=== PATIENT | male | born 1980 | race African-American/Black ===

== ENCOUNTER 2017-06-12 23:05 | Inpatient (IN) | payer MEDICAID ==
[~2017-06-12] VITALS: Ht 195.6 cm; Wt 112.6 kg
[~2017-06-12 23:05] MED LIST: CYCL-36 PO; DICL75 PO
[2017-06-12 23:12] VITALS: BP 115/187; PULSE 95; RESP 20; TEMP 98.6; O2SAT 97
[2017-06-12 23:33] VITALS: BP_DIAS 87
--- NOTE | 2017-06-12 23:35 | PD ---
HPI Chief Complaint: General Weakness Time Seen by Provider: 23:35 Travel History International Travel<30 days: No Contact w/Intl Traveler<30days: No Traveled to known affect area: No History of Present Illness HPI 36-year-old male came to the emergency room with history of polydipsia and polyuria that has been going on for past 3-4 days. Patient tells me that 2 days ago he was at an urgent care for some abdominal pain where he was told that he had prostatitis and was discharged home on doxycycline. He told me that his urine was tested. In triage patient had a blood glucose point of care testing done and the glucometer read high. Patient does not have any history of diabetes. He is not on any medications besides the doxycycline that he has been taking for past 2 days. No history of nausea vomiting. No history of abdominal pain currently. Vital signs are relatively stable. He told me today he had some blurred vision that bothered him. He's been getting on and off dizziness as well. [facility] Past Medical History Narrative Medical List of his past medical, surgical, social and family history is reviewed from the nursing note. Medical History: Denies Significant Hx Diminished Hearing: No Immunizations Current: No Tetanus Vaccination: < 5 Years Influenza Vaccination: No Social History Alcohol Use: Yes (1-2 liquor drinks daily) Tobacco Use: Yes (Hooka occasionally) Substance Use: No Allergies-Medications (Allergen,Severity, Reaction): Coded Allergies: No Known Allergies (Unverified Adverse Reaction, Unknown, 06/12/17) Comments No known drug allergies. Reported Meds & Prescriptions Reported Meds & Active Scripts Active Diclofenac Sodium 75 Mg Tab 75 Mg PO BID PRN Flexeril (Cyclobenzaprine HCl) 10 Mg Tab 10 Mg PO Q8 PRN Narrative Medication List of his home medications reviewed from the nursing note. Review of Systems Except as stated in HPI: all other systems reviewed are Neg Endocrine: Positive: Polyuria, Polydipsia Physical Exam Narrative GENERAL: Awake, alert, no obvious distress SKIN: Focused skin assessment warm/dry. HEAD: Atraumatic. Normocephalic. EYES: Pupils equal and round. No scleral icterus. No injection or drainage. ENT: No nasal bleeding or discharge. Dry mucous membrane. NECK: Trachea midline. No JVD. CARDIOVASCULAR: Regular rate and rhythm. No murmur appreciated. RESPIRATORY: No accessory muscle use. Clear to auscultation. Breath sounds equal bilaterally. GASTROINTESTINAL: Abdomen soft, non-tender, nondistended. Hepatic and splenic margins not palpable. MUSCULOSKELETAL: No obvious deformities. No clubbing. No cyanosis. No edema. NEUROLOGICAL: Awake and alert. No obvious cranial nerve deficits. Motor grossly within normal limits. Normal speech. PSYCHIATRIC: Appropriate mood and affect; insight and judgment normal. Data Data Last Documented VS Vital Signs Date Time Temp Pulse Resp B/P (MAP) Pulse Ox O2 Delivery O2 Flow Rate FiO2 06/12/17 23:45 97 Room Air 06/12/17 23:12 98.6 95 20 Orders Orders Complete Blood Count With Diff (06/12/17:40) Comprehensive Metabolic Panel (06/12/17:) Beta Hydroxybutyrate (Acetone) (06/12/17:40) Urinalysis - C+S If Indicated (06/12/17:40) Blood Gas Venous (Vbg) (06/12/17:40) Blood Glucose (06/12/17:40) Blood Glucose (06/13/17 00:40) Ecg Monitoring (06/12/17:40) Iv Access Insert/Monitor (06/12/17:40) Oximetry (06/12/17:40) NPO (06/12/17:40) Sodium Chlor 0.9% 1000 Ml Inj (Ns 1000 M (06/12/17 23:40) Sodium Chloride 0.9% Flush (Ns Flush) (06/12/17 23:45) Insulin Human Regular Inj (Novolin R Inj (06/13/17 00:45) Drug Screen, Random Urine (06/13/17 00:31) Sodium Chlor 0.9% 1000 Ml Inj (Ns 1000 M (06/13/17 01:04) Labs Laboratory Tests Test 06/12/17 23:40 06/12/17 23:45 06/13/17 00:00 Urine Color STRAW Urine Turbidity CLEAR Urine pH 6.0 Urine Specific [place] 1.029 Urine Protein NEG mg/dL Urine Glucose (UA) 1000 OR GREATER mg/dL Urine Ketones NEG mg/dL Urine Occult Blood NEG Urine Nitrite NEG Urine Bilirubin NEG Urine Leukocyte Esterase NEG Urine RBC 0-3 /hpf Urine WBC 0-2 /hpf Urine Squamous Epithelial Cells 0-5 /hpf Microscopic Urinalysis Comment CULT NOT INDICATED White Blood Count 7.7 TH/MM3 Red Blood Count 5.41 MIL/MM3 Hemoglobin 16.8 GM/DL Hematocrit 49.2 % Mean Corpuscular Volume 90.8 FL Mean Corpuscular Hemoglobin 31.0 PG Mean Corpuscular Hemoglobin Concent 34.1 % Red Cell Distribution Width 12.1 % Platelet Count 267 TH/MM3 Mean Platelet Volume 8.9 FL Neutrophils (%) (Auto) 61.3 % Lymphocytes (%) (Auto) 27.8 % Monocytes (%) (Auto) 7.4 % Eosinophils (%) (Auto) 1.9 % Basophils (%) (Auto) 1.6 % Neutrophils # (Auto) 4.8 TH/MM3 Lymphocytes # (Auto) 2.1 TH/MM3 Monocytes # (Auto) 0.6 TH/MM3 Eosinophils # (Auto) 0.1 TH/MM3 Basophils # (Auto) 0.1 TH/MM3 CBC Comment DIFF FINAL Differential Comment Blood Gas Puncture Site IV Blood Gas Patient Temperature 98.6 Venous Blood pH 7.38 Venous Blood Partial Pressure CO2 47 mmHg Venous Blood Partial Pressure O2 55 mmHg Venous Blood HCO3 27 mmol/L Venous Blood Oxygen Saturation 85 % Venous Blood Oxygen Content 20.0 Vol % Venous Blood Base Excess 2.4 mmol/L Oxygen Delivery Device ROOM AIR Blood Gas Inspired Oxygen 21 % Blood Urea Nitrogen 22 MG/DL Creatinine 2.10 MG/DL Random Glucose 1049 MG/DL Total Protein 8.2 GM/DL Albumin 4.2 GM/DL Calcium Level 8.8 MG/DL Alkaline Phosphatase 115 U/L Aspartate Amino Transf (AST/SGOT) 11 U/L Alanine Aminotransferase (ALT/SGPT) 26 U/L Total Bilirubin 0.9 MG/DL Sodium Level 123 MEQ/L Potassium Level 4.6 MEQ/L Chloride Level 87 MEQ/L Carbon Dioxide Level 26.3 MEQ/L Anion Gap 10 MEQ/L Estimat Glomerular Filtration Rate 43 ML/MIN B-Hydroxybutyrate 0.19 MMOL/L Urine Cocaine Screen NEG Urine Cannabinoids Screen NEG [facility] Medical Decision Making Medical Screen Exam Complete: Yes Emergency Medical Condition: Yes Medical Record Reviewed: Yes Differential Diagnosis Hyperglycemia, DKA, HONK Narrative Course 12:54 AM patient was given IV fluid as per the hyperglycemia protocol. He has received total of 4 L of IV fluid bolus. Blood test results of back and patient severe hyperglycemia. Renal function is significantly compromise. I' ve ordered 10 units of insulin IV bolus. Patient is not in DKA. In fact his ketones are negative which brings his diagnosis to hyper osmolar nonketotic hyperglycemia or HONK. I've discussed with the patient at length that he will need to be admitted and he has finally agreed to that. Awaiting for the hospitalist to call back. Critical Care Narrative Aggregate critical care time was 45 minutes. Time to perform other separately billable procedures was not included in the critical care time. My time did not include minutes spent treating any other patients simultaneously or on activities that did not directly contribute to the patient's treatment. The services I provided to this patient were to treat and/or prevent clinically significant deterioration that could result in: Severe hyperglycemia, HONK, IV insulin, fluid rehydration I provided critical care services requiring my management, as noted below: Chart data review, documentation time, medication orders and management, vital sign assessments/reviewing monitor data, ordering and reviewing lab tests, ordering and interpreting/reviewing x-rays and diagnostic studies, care of the patient and discussion of the patient with the admitting physicians. Procedures EKG Prior to Arrival: No Diagnosis Primary Impression: Diabetic hyperosmolar non-ketotic state Additional Impression: New onset type 1 diabetes mellitus, uncontrolled Admitting Information Admitting Physician Requests: it Geoffrey Crawford MD Jun 12, 2017 23:35
[2017-06-12] MEDS ORDERED: SODIUM CHLOR 0.9% 1000 ML INJ 1,000 ML IV ONE (23:40)
[2017-06-12 23:45] VITALS: O2SAT 97
[2017-06-12] MEDS ORDERED: SODIUM CHLORIDE 0.9% FLUSH 10 ML FLUSH IVF PRN (23:45)
[2017-06-12 23:53] LABS: AUTOMATED NEUTROPHIL # 4.8 TH/MM3 (1.8-7.7); BASOPHIL # 0.1 TH/MM3 (0-0.2); BASOPHIL % 1.6 % (0.0-2.0); EOSINOPHIL # 0.1 TH/MM3 (0-0.4); EOSINOPHIL % 1.9 % (0.0-4.0); HEMATOCRIT 49.2 % (39.0-51.0); HEMO FLAGS DIFF FINAL; LYMPH % 27.8 % (9.0-44.0); LYMPHOCYTE # 2.1 TH/MM3 (1.0-4.8); MEAN CELL VOLUME 90.8 FL (80.0-100.0); MEAN CORPUSCULAR HGB CONC 34.1 % (32.0-36.0); MONO % 7.4 % (0.0-8.0); NEUT % 61.3 % (16.0-70.0); PLATELET COUNT 267 TH/MM3 (150-450); RED BLOOD COUNT 5.41 MIL/MM3 (4.50-5.90); RED CELL DISTRIBUTION WIDTH 12.1 % (11.6-17.2); WHITE BLOOD COUNT 7.7 TH/MM3 (4.0-11.0)
[2017-06-12 23:54] LABS: BLOOD, URINE NEG (NEG); GLUCOSE,URINE 1000 OR GREATER mg/dL (NEG); KETONE, URINE NEG (NEG); NITRITE,URINE NEG (NEG)
[2017-06-12 23:56] LABS: BLOOD GAS VENOUS BASE EXCESS 2.4 mmol/L (-2-2); BLOOD GAS VENOUS HCO3 27 mmol/L (22-26); BLOOD GAS VENOUS O2 HGB SAT 85 % (70-76); BLOOD GAS VENOUS PCO2 47 mmHg (44-48); BLOOD GAS VENOUS PO2 55 mmHg (35-40); BLOOD GAS VENOUS pH 7.38 (7.360-7.400); CRITICAL VALUE NO; DRAW SITE IV; FIO2 21 %; OXYGEN DEVICE ROOM AIR; STAT YES; TEMP CORR TO 98.6
[2017-06-13] VITALS (9 sets, daily range): BP systolic 118–150; BP diastolic 62–93; PULSE 64–89; RESP 13–20; TEMP 97.6–98.4; O2SAT 98–100
[2017-06-13] LABS: URINE COLOR STRAW (YELLW/STRAW)
[2017-06-13 00:02] LABS: COMMENT (UR) CULT NOT INDICATED; CULTURE IF INDICATED CULT NOT INDICATED; RBC, URINE 0-3 /hpf (0-3); SQUAMOUS EPITHELIAL CELL URINE 0-5 /hpf (0-5); WBC, URINE 0-2 /hpf (0-5)
[2017-06-13 00:15] LABS: ALKALINE PHOSPHATASE 115 U/L (45-117); ALT (GPT) 26 U/L (12-78); ANION GAP 10 MEQ/L (5-15); AST (GOT) 11 U/L (15-37); BICARBONATE 26.3 MEQ/L (21.0-32.0); BLOOD UREA NITROGEN 22 MG/DL (7-18); CHLORIDE 87 MEQ/L (98-107); GLOMERULAR FILTRATION RATE 43 ML/MIN (>89); POTASSIUM 4.6 MEQ/L (3.5-5.1); TOTAL BILIRUBIN ADULT 0.9 MG/DL (0.2-1.0)
[2017-06-13 00:19] LABS: SODIUM (NA) 123 MEQ/L (136-145)
[2017-06-13 00:22] LABS: BETA-HYDROXYBUTYRATE 0.19 MMOL/L (0.00-0.39)
[2017-06-13] MEDS ORDERED: INSULIN HUMAN REGULAR 1,000 UNITS/10 ML VIAL IV PUSH ONE ×2 (00:45→07:00)
[2017-06-13] MEDS: SODIUM CHLOR 0.9% 1000 ML INJ 1,000 ML IV SCH ×4 (01:00→23:42)
[2017-06-13] MEDS ORDERED: SODIUM CHLOR 0.9% 1000 ML INJ 1,000 ML IV ONE (01:04)
[2017-06-13] MEDS ORDERED: ONDANSETRON HCL 4 MG/2 ML VIAL IVP PRN (01:15)
[2017-06-13] MEDS ORDERED: SODIUM CHLORIDE 0.9% FLUSH 10 ML FLUSH IV FLUSH PRN (01:15)
[2017-06-13] MEDS ORDERED: NALOXONE HCL 0.4 MG/ML AMP IV PUSH PRN (01:15)
[2017-06-13] MEDS ORDERED: ACETAMINOPHEN 325 MG TAB PO PRN (01:15)
[2017-06-13] MEDS ORDERED: DEXTROSE 50% IN WATER 50 ML VIAL(D50) IV PUSH PRN ×2 (01:30→09:30)
[2017-06-13] MEDS ORDERED: GLUCAGON 1 MG/ML VIAL OTHER PRN ×2 (01:30→09:30)
[2017-06-13] MEDS ORDERED: INSULIN HUMAN REGULAR 1,000 UNITS/10 ML VIAL SQ ONE (03:45)
[2017-06-13] MEDS ORDERED: DOXY1CAP91 PO (04:16)
[2017-06-13] MEDS ORDERED: CYCL10TA PO (04:16)
[2017-06-13] MEDS ORDERED: DICL75TA PO (04:16)
[2017-06-13 04:33] LABS: AUTOMATED NEUTROPHIL # 5.3 TH/MM3 (1.8-7.7); BASOPHIL % 0.5 % (0.0-2.0); EOSINOPHIL # 0.3 TH/MM3 (0-0.4); EOSINOPHIL % 3.2 % (0.0-4.0); HEMATOCRIT 47.3 % (39.0-51.0); HEMO FLAGS DIFF FINAL; LYMPH % 28.9 % (9.0-44.0); LYMPHOCYTE # 2.5 TH/MM3 (1.0-4.8); MEAN CELL VOLUME 87.9 FL (80.0-100.0); MEAN CORPUSCULAR HEMOGLOBIN 29.8 PG (27.0-34.0); MEAN CORPUSCULAR HGB CONC 33.9 % (32.0-36.0); MONO % 5.1 % (0.0-8.0); NEUT % 62.3 % (16.0-70.0); PLATELET COUNT 296 TH/MM3 (150-450); RED BLOOD COUNT 5.39 MIL/MM3 (4.50-5.90); RED CELL DISTRIBUTION WIDTH 11.8 % (11.6-17.2); WHITE BLOOD COUNT 8.5 TH/MM3 (4.0-11.0)
[2017-06-13 04:53] LABS: BICARBONATE 26.4 MEQ/L (21.0-32.0); POTASSIUM 4.3 MEQ/L (3.5-5.1)
[2017-06-13] MEDS: INSULIN DETEMIR 100 UNITS/ML VIAL SQ SCH ×2 (09:40→21:33)
[2017-06-13] MEDS: SODIUM CHLORIDE 0.9% FLUSH 10 ML FLUSH IV FLUSH SCH ×2 (09:42→21:00)
--- NOTE | 2017-06-13 11:11 | HHI.HP ---
[facility] Service [facility] Primary Care Physician Moe Lancaster MD Admission Diagnosis HONK Diagnoses: (1) DM type 2 (diabetes mellitus, type 2) (2) Diabetic hyperosmolar non-ketotic state (3) MABEL (acute kidney injury) Travel History International Travel<30 Days: No Contact w/Intl Traveler <30 Da: No Traveled to Known Affected Are: No History of Present Illness This is a pleasant 36-year-old Afro-Cuban [place] male patient with no significant past medical history who presented to the ER last night with a several day history of polyuria polydipsia and "ammonia" breath. The patient states that he went to an urgent care for evaluation of the symptoms several days ago. He states he was having intermittent abdominal pain but that the abdominal pain only happen when he tried to hold his urine for too long. The patient was prescribed doxycycline for possible prostatitis. The patient's symptoms did not improve. Symptoms moderate, no palliative or provocative factors. Yesterday he drank to orange juices and to create juices. He was also having some blurry vision. He came to the ER for evaluation of these problems. Blood glucose was found to be 1000. The patient was given 10 units of IV regular insulin at 1 AM and an additional 8 units at 7 AM as well as 5 units subcutaneous at 3:49 AM. Blood sugar this morning is in the 400s. Patient states his symptoms have improved today. Vision is improved. The patient denies any dysuria or urgency. Patient denies any nausea vomiting or diarrhea. He has never been told that he has elevated blood sugars before. Review of Systems Constitutional: COMPLAINS OF: Weight loss (15 pounds over 3 months - intentional), DENIES: Fever Endocrine: COMPLAINS OF: Polydipsia, Polyuria Eyes: COMPLAINS OF: Blurred vision, DENIES: Vision loss Ears, nose, mouth, throat: DENIES: Throat pain, Running Nose Respiratory: DENIES: Cough, Shortness of breath Cardiovascular: DENIES: Chest pain, Palpitations Gastrointestinal: DENIES: Abdominal pain, Nausea, Vomiting Genitourinary: DENIES: Urgency, Dysuria Musculoskeletal: DENIES: Muscle aches, Joint Swelling, Neck pain Integumentary: DENIES: Pruritus, Rash Hematologic/lymphatic: COMPLAINS OF: Lymphadenopathy (one enlarged LMN in right axilla/upper arm) Neurologic: DENIES: Abnormal gait, Headache Psychiatric: DENIES: Anxiety, Confusion Past Family Social History Past Medical History None Reported Medications Doxycycline Allergies: Coded Allergies: No Known Allergies (Unverified Allergy, Unknown, 06/13/17) Family History Negative for diabetes Social History He smokes a hookah No alcohol or drug use 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 SKIN: Warm and dry. HEAD: Normocephalic. EYES: No scleral icterus. No injection or drainage. NECK: Supple, trachea midline. No JVD or lymphadenopathy. CARDIOVASCULAR: Regular rate and rhythm without murmurs, gallops, or rubs. RESPIRATORY: Breath sounds equal bilaterally. No accessory muscle use. GASTROINTESTINAL: Abdomen soft, non-tender, nondistended. EXTREMITIES: No cyanosis, or edema. NEUROLOGICAL: Awake, alert, and oriented x 3. Non-focal. Laboratory Laboratory Tests Test 06/12/17 23:40 06/12/17 23:45 06/13/17 00:00 06/13/17 04:15 Urine Color STRAW Urine Turbidity CLEAR Urine pH 6.0 Urine Specific [place] 1.029 Urine Protein NEG Urine Glucose (UA) 1000 OR GREATER Urine Ketones NEG Urine Occult Blood NEG Urine Nitrite NEG Urine Bilirubin NEG Urine Leukocyte Esterase NEG Urine RBC 0-3 Urine WBC 0-2 Urine Squamous Epithelial Cells 0-5 Microscopic Urinalysis Comment CULT NOT INDICATED White Blood Count 7.7 8.5 Red Blood Count 5.41 5.39 Hemoglobin 16.8 16.1 Hematocrit 49.2 47.3 Mean Corpuscular Volume 90.8 87.9 Mean Corpuscular Hemoglobin 31.0 29.8 Mean Corpuscular Hemoglobin Concent 34.1 33.9 Red Cell Distribution Width 12.1 11.8 Platelet Count 267 296 Mean Platelet Volume 8.9 8.1 Neutrophils (%) (Auto) 61.3 62.3 Lymphocytes (%) (Auto) 27.8 28.9 Monocytes (%) (Auto) 7.4 5.1 Eosinophils (%) (Auto) 1.9 3.2 Basophils (%) (Auto) 1.6 0.5 Neutrophils # (Auto) 4.8 5.3 Lymphocytes # (Auto) 2.1 2.5 Monocytes # (Auto) 0.6 0.4 Eosinophils # (Auto) 0.1 0.3 Basophils # (Auto) 0.1 0.0 CBC Comment DIFF FINAL DIFF FINAL Differential Comment Blood Gas Puncture Site IV Blood Gas Patient Temperature 98.6 Venous Blood pH 7.38 Venous Blood Partial Pressure CO2 47 Venous Blood Partial Pressure O2 55 Venous Blood HCO3 27 Venous Blood Oxygen Saturation 85 Venous Blood Oxygen Content 20.0 Venous Blood Base Excess 2.4 Oxygen Delivery Device ROOM AIR Blood Gas Inspired Oxygen 21 Blood Urea Nitrogen 22 18 Creatinine 2.10 1.50 Random Glucose 1049 487 Total Protein 8.2 Albumin 4.2 Calcium Level 8.8 8.6 Alkaline Phosphatase 115 Aspartate Amino Transf (AST/SGOT) 11 Alanine Aminotransferase (ALT/SGPT) 26 Total Bilirubin 0.9 Sodium Level 123 136 Potassium Level 4.6 4.3 Chloride Level 87 101 Carbon Dioxide Level 26.3 26.4 Anion Gap 10 9 Estimat Glomerular Filtration Rate 43 63 B-Hydroxybutyrate 0.19 Urine Opiates Screen NEG Urine Barbiturates Screen NEG Urine Amphetamines Screen NEG Urine Benzodiazepines Screen NEG Urine Cocaine Screen NEG Urine Cannabinoids Screen NEG Result Diagram: 06/13/1741406/13/17414 Caprini VTE Risk Assessment Caprini VTE Risk Assessment: No/Low Risk (score <= 1) Caprini Risk Assessment Model Point Value = 1 Point Value = 2 Point Value = 3 Point Value = 5 Age 41-60 Minor surgery BMI > 25 kg/m2 Swollen legs Varicose veins or History of unexplained or recurrent spontaneous Oral contraceptives or hormone replacement Sepsis (< 1 month) Serious lung disease, including pneumonia (< 1 month) Abnormal pulmonary function Acute myocardial infarction Congestive heart failure (< 1 month) History of inflammatory bowel disease Medical patient at bed rest Age 61-74 Arthroscopic surgery Major open surgery (> 45 min) Laparoscopic surgery (> 45 min) Malignancy Confined to bed (> 72 hours) Immobilizing plaster cast Central venous access Age >= 75 History of VTE Family history of VTE Factor V Leiden Prothrombin [id number] Lupus anticoagulant Anticardiolipin antibodies Elevated serum homocysteine Heparin-induced thrombocytopenia Other congenital or acquired thrombophilia Stroke (< 1 month) Elective arthroplasty Hip, pelvis, or leg fracture Acute spinal cord injury (< 1 month) Prophylaxis Regimen Total Risk Factor Score Risk Level Prophylaxis Regimen 0-1 Low Early ambulation 2 Moderate Order ONE of the following: *Sequential Compression Device (SCD) *Heparin 5000 units SQ BID 3-4 Higher Order ONE of the following medications: *Heparin 5000 units SQ TID *Enoxaparin/Lovenox 40 mg SQ daily (WT < 150 kg, CrCl > 30 mL/min) *Enoxaparin/Lovenox 30 mg SQ daily (WT < 150 kg, CrCl > 10-29 mL/min) *Enoxaparin/Lovenox 30 mg SQ BID (WT < 150 kg, CrCl > 30 mL/min) AND/OR *Sequential Compression Device (SCD) 5 or more Highest Order ONE of the following medications: *Heparin 5000 units SQ TID (Preferred with Epidurals) *Enoxaparin/Lovenox 40 mg SQ daily (WT < 150 kg, CrCl > 30 mL/min) *Enoxaparin/Lovenox 30 mg SQ daily (WT < 150 kg, CrCl > 10-29 mL/min) *Enoxaparin/Lovenox 30 mg SQ BID (WT < 150 kg, CrCl > 30 mL/min) AND *Sequential Compression Device (SCD) Assessment and Plan Assessment and Plan -HHS - likely exacerbated by his intake of juice yesterday. Blood sugar improved to 400 this morning status multiple boluses of IV insulin and subcutaneous insulin. We'll start him on Levemir 10 units subcutaneous every 12 hours and sliding scale insulin. Check hemoglobin A1c. Continue IV fluids. -New-onset type 2 diabetes. Check hemoglobin A1c. Start metformin and Levemir. Consult early childhood educator aide. -Acute kidney injury, improving with IV fluid hydration which we will continue. Repeat BMP in the morning. -DVT prophylaxis with SCDs. Lissette Ivey MD Jun 13, 2017 11:11
[2017-06-13] MEDS: INSULIN ASPART SUPPLEMENTAL SCALE SQ SCH ×3 (12:50→21:00)
[2017-06-13] MEDS: metFORMIN HCL 850 MG TAB PO SCH (17:22)
[2017-06-13 20:43] LABS: HEMOGLOBIN A1a 1.4 %; HEMOGLOBIN A1b 1.2 %; HEMOGLOBIN Ao 73.4 %; HEMOGLOBIN F 2.2 %; HEMOGLOBIN LA1C 4.7 %; HEMOGLOBIN P3 7.4 %
[2017-06-14] VITALS: BP 112/75; PULSE 64; RESP 18; TEMP 96.9; O2SAT 96
[2017-06-14 04:00] VITALS: BP 120/77; PULSE 55; PULSE 62; RESP 16; TEMP 96.9; O2SAT 97
[2017-06-14 08:00] VITALS: BP 113/74; PULSE 62; RESP 16; TEMP 96.6; O2SAT 99
[2017-06-14] MEDS: INSULIN ASPART SUPPLEMENTAL SCALE SQ SCH ×2 (08:00→12:00)
[2017-06-14] MEDS: metFORMIN HCL 850 MG TAB PO SCH (08:41)
[2017-06-14] MEDS: SODIUM CHLORIDE 0.9% FLUSH 10 ML FLUSH IV FLUSH SCH (08:41)
[2017-06-14] MEDS ORDERED: INSULIN DETEMIR 100 UNITS/ML VIAL SQ SCH (09:00)
[2017-06-14] MEDS ORDERED: GLUCTES12 (09:33)
[2017-06-14] MEDS ORDERED: METF1000 PO (09:33)
[2017-06-14] MEDS ORDERED: GLUCKIT15 (09:33)
[2017-06-14] MEDS ORDERED: LANCETS1 MI1 (09:33)
[2017-06-14] MEDS ORDERED: NOVOLOGP2 SQ (09:35)
[2017-06-14] MEDS ORDERED: HUMA100I3 SQ (09:37)
[2017-06-14] MEDS ORDERED: INSU1INJ5 SQ (09:37)
--- NOTE | 2017-06-14 10:43 | HHI.PR ---
Subjective Remarks Patient has sinus congestion and feels he has a head cold. BSG 200s. Objective Vitals Vital Signs Date Time Temp Pulse Resp B/P (MAP) Pulse Ox O2 Delivery O2 Flow Rate FiO2 06/14/17 08:00 96.6 62 16 113/74 (87) 99 06/14/17 04:00 96.9 55 16 120/77 (91) 97 06/14/17 04:00 62 06/14/17 00:00 96.9 64 18 112/75 (87) 96 06/13/17 20:00 98.4 75 18 118/79 (92) 100 06/13/17 16:40 98.0 89 16 140/88 (105) 99 06/13/17 12:00 70 16 124/62 (82) I/O 06/13/17 06/13/17 06/13/17 06/14/17 06/14/17 06/14/17 07:00 15:00 23:00 07:00 15:00 23:00 Intake Total 2772 ml 710 ml 1068 ml 800 ml Output Total 2200 ml 250 ml Balance 572 ml 710 ml -250 ml 1068 ml 800 ml Intake Oral 480 ml 420 ml IV Total 2292 ml 710 ml 648 ml 800 ml Output Urine Total 2200 ml 250 ml # Voids 5 2 # Bowel Movements 0 Result Diagram: 06/13/1741406/13/17414 Objective Remarks GENERAL: Well-nourished, well-developed pleasant male patient. SKIN: Warm and dry. HEAD: Normocephalic. EYES: No scleral icterus. No injection or drainage. NECK: Supple, trachea midline. No JVD or lymphadenopathy. CARDIOVASCULAR: Regular rate and rhythm without murmurs, gallops, or rubs. RESPIRATORY: Breath sounds equal bilaterally. No accessory muscle use. GASTROINTESTINAL: Abdomen soft, non-tender, nondistended. EXTREMITIES: No cyanosis, or edema. NEUROLOGICAL: Awake, alert, and oriented x 3. Non-focal. A/P Problem List: (1) DM type 2 (diabetes mellitus, type 2) ICD Code: E11.9 - Type 2 diabetes mellitus without complications (2) Diabetic hyperosmolar non-ketotic state ICD Code: E11.00 - Type 2 diabetes mellitus with hyperosmolarity without nonketotic hyperglycemic-hyperosmolar coma ([facility]) Status: Resolved (3) MABEL (acute kidney injury) ICD Code: N17.9 - Acute kidney failure, unspecified Status: Resolved Assessment and Plan -HHS - likely exacerbated by his intake of juice yesterday. Now resolved. -New-onset type 2 diabetes. hemoglobin A1c 9. Started metformin and Levemir- will icnrease levemir to 15 units bid. s/p consultation with primary special educator. -Acute kidney injury, resolved with IV fluid hydration. -DVT prophylaxis with SCDs. DC home today See med rec for prescriptions - levemir, novolog ssi, metformin F/u with PCP 2 weeks D/w pt and girlfriend at bedside Problem Qualifiers (1) DM type 2 (diabetes mellitus, type 2): Qualified Codes: E11.9 - Type 2 diabetes mellitus without complications Lissette Ivey MD Jun 14, 2017 10:43
== END 2017-06-14 12:43 | disposition home or self-care (01) | DRG 638 ==
LOC: PHED 23:05 → PHEDA 06-13 01:11 → PHICU 06-13 03:00 → PH3B 06-13 16:38
PROVIDERS: ADMIT Family Medicine; ATTEND Family Medicine
DX: E11.00 Type 2 diabetes mellitus with hyperosmolarity without nonketotic hyperglycemic-hyperosmolar coma (NKHHC) (principal); N17.9 Acute kidney failure, unspecified; Z72.0 Tobacco use; R09.81 Nasal congestion
CPT/HCPCS: 80048; 80053; 80307; 81001; 82010; 82805; 82948; 83036; 85025; 96361; 96374; J1815; J7030